=== PATIENT | female | born 1975 | race Caucasian/White ===

== ENCOUNTER 2016-08-13 11:17 | Emergency (ER) | payer MEDICAID ==
[~2016-08-13] VITALS: Wt 86.5 kg
[2016-08-13] MEDS ORDERED: NAPR-260 PO (12:06)
[2016-08-13] MEDS ORDERED: OMEP40CA6 PO (12:06)
--- NOTE | 2016-08-13 12:47 | ERD ---
ER Documentation Chief Complaint Date/Time DATE: 08/13/16 TIME: 12:34 Chief Complaint HEADACHE AND GENERAL BODY PAIN SINCE LAST NIGHT HPI 41-year-old female complaining of bilateral hand and arm pain and numbness 2 month. Symptoms become worse the last 2 weeks. The pain is constant, worse at night, warm water in the morning makes the pain better. Patient reports numbness tingling in her middle and ring fingers bilaterally. She has decrease in vehicle technician strength bilaterally. Patient is right-hand dominant, works in the kitchen. Denies trauma. Patient also complaining of epigastric pain on and off 1 month. Pain is worse after eating, cramp like. She feels acid coming up her throat at times. Denies nausea, vomiting, or diarrhea. Denies fever or chills. ROS All systems reviewed and are negative except as per history of present illness. Medications Home Meds Active Scripts Omeprazole* (Omeprazole*) 40 Mg Capsule.dr, 40 MG PO DAILY, #14 CAP Prov:SANDIE HEATH. NON PROFIT FINANCIAL CONTROLLER 08/13/16 Naproxen* (Naprosyn*) 500 Mg Tablet, 500 MG PO BID Y for PAIN AND/OR INFLAMMATION, #30 TAB Take with food Prov:SANDIE HEATH. NON PROFIT FINANCIAL CONTROLLER 08/13/16 PMhx/Soc Medical and Surgical Hx: pt denies Medical Hx History of Surgery: No Anesthesia Reaction: No Hx Neurological Disorder: No Hx Respiratory Disorders: No Hx Cardiac Disorders: No Hx Psychiatric Problems: No Hx Miscellaneous Medical Probl: No Hx Alcohol Use: No Hx Substance Use: No Hx Tobacco Use: No Smoking Status: Never smoker Physical Exam Vitals Vital Signs Date Time Temp Pulse Resp B/P Pulse Ox O2 Delivery O2 Flow Rate FiO2 08/13/16 11:23 98.0 71 18 139/80 99 Physical Exam General impression: Well-developed, well-nourished. Alert, oriented, in no acute distress Head: Normocephalic, atraumatic. Eyes: PERRL, EOM normal. Sclerae are normal. Conjunctiva not injected. Neck: Supple, nontender. No lymphadenopathy. No nuchal rigidity. No midline C-spine tenderness. Respiration: Normal respiratory effort. Lungs clear to auscultate bilaterally. No wheezes, rales or rhonchi. Cardiovascular: Regular rate and rhythm. No murmurs or extra heart sounds. Abdomen: Abdomen normal to inspection. Nontender. No masses or organomegaly. Bowel sounds normal. Back: Normal to inspection. No midline spine tenderness. No CVA tenderness. Extremities: Extremities normal to inspection. Positive Tinel and Phalen's signs bilaterally. Right hand vehicle technician strength slightly decreased compared to the left. Range of motion normal. Neurovascularly intact. Neuro: Mental status normal, speech normal. ADJUNCT HISTORY INSTRUCTOR grossly intact. Skin: Normal turgor. No rash or lesions. Psych: Normal mood and affect. Procedures/MDM Well-appearing 41-year-old female presented ED with bilateral hand pain and numbness. Patient's exam findings are consistent with carpal tunnel syndrome bilaterally, likely due to repetitive stress at work in the kitchen. I doubt fractures, dislocations, ligamentous injuries, or rheumatoid arthritis. I doubt radicular neuropathy. Bilateral wrists were immobilized with a Velcro wrist splints. Patient was noted to be comfortable and neurovascularly intact both before and after the immobilization. Patient advised to follow-up with PCP for and or the referral. Patient also reports epigastric pain on and off. Her history is consistent with acid reflux. She does not have any abdominal tenderness on palpation, I doubt acute appendicitis, cholecystitis, pericarditis, or other acute abdomen. Patient appears well, stable for discharge and outpatient management. Medical decision making shared with patient and family. Education provided to patient and family. Patient and family expressed understanding of the plan. Medications on discharge: Omeprazole, naproxen. Follow-up: Primary care provider in 2-3 days or return to ED if worse. Departure Diagnosis: Primary Impression: Carpal tunnel syndrome on both sides Additional Impression: Epigastric abdominal pain Condition: Good Patient Instructions: Carpal Tunnel Syndrome Prevention Tips, Carpal Tunnel, Gerd (Adult) Referrals: [facility] Usted se valentine hecho un examen mdico de control que le indica que no est en brynn condicin que requiera tratamiento urgente en el Departamento de Emergencia. Un estudio ms profundo y el tratamiento de miner condicin pueden esperar sin ningn riesgo hasta que usted sea atendida/o en el consultorio de miner mdico o brynn cl roberto. Es responsabilidad suya arreglar brynn hamilton para el seguimiento del mandeep. MANEJO DE CONDICIONES NO URGENTES EN EL FUTURO 1) Si usted tiene un mdico de atencin primaria: Usted debera llamar a miner mdico de atencin primaria antes de venir al departamento de emergencia. Despus de las horas de consultorio, miner doctor o miner asociado/a est disponible por telfono. El mdico o enfermero de abraham en el servicio telefnico puede asesorarle por orquidea medio para atender el problema, o mandeep contrario se puede programar brynn hamilton. 2) Si usted no tiene un mdico de atencin primaria: Llame al mdico o clnica de referencia que aparece abajo indu las horas de consultorio para hacer brynn hamilton para que le vean. CLINICAS: [place] [id number] [phone] [facility] [phone] [id number] [facility]. [facility] [phone] [facility]. [place] [phone] [facility]. [place] [id number] [phone] [facility]. [phone] [address] Additional Instructions: Llame al doctor MAANA y israel brynn HAMILTON PARA DENTRO DE 2-3 ROONEY.Dgale a la secretaria que nosotros le instruimos hacer esta hamilton.Avise o llame si miner condicin se empeora antes de la hamilton. Regresa aqui si peor o no mejor. Specialist:Usted tiene brynn condicin mdica que requiere que barb a un especialista dentro de los prximos 1-2 day.POR FAVOR,CON MINER SEGUIMIENTO DE PRIMARIA PHSICIAN refferal. SI USTED NO TIENE UN MDICO GENERAL Y / O USTED NO PUEDE PAGAR luli a un mdico,los siguientes monroy RECURSOS sido suministrado a usted. ES MINER RESPONSABILIDAD PARA SER VISTOS POR EL ESPECIALISTA: SANDIE HEATH. RIVAS Aug 13, 2016 12:44
== END 2016-08-13 12:28 | disposition home or self-care (01) ==
LOC: FTE 11:17
DX: G56.03 Carpal tunnel syndrome, bilateral upper limbs (principal); R10.13 Epigastric pain
CPT/HCPCS: 29125; Z7502

== ENCOUNTER 2016-08-24 19:53 | Emergency (ER) | payer MEDICAID ==
[~2016-08-24] VITALS: Ht 157.5 cm; Wt 88.0 kg
[~2016-08-24 19:53] MED LIST: NAPR-260 PO; OMEP40CA6 PO
[2016-08-24 20:02] VITALS: Ht 157.5 cm; Wt 88.0 kg
[2016-08-24] MEDS ORDERED: KETOROLAC 30 MG INJ IM STA (21:08)
[2016-08-24] MEDS ORDERED: IBUP-1542 PO (21:17)
[2016-08-24] MEDS ORDERED: ACET500C5 PO (21:17)
[2016-08-24] MEDS ORDERED: TRAM50TA2 PO (21:17)
--- NOTE | 2016-08-24 21:25 | ERD ---
ER Documentation Chief Complaint Date/Time DATE: 08/24/16 TIME: 21:20 Chief Complaint rightr arm and hand pain w/ swelling x 2 days HPI This is a 41-year-old female presents to the emergency department today complaining of right arm and hand pain and swelling for the past couple of days. Patient states he was seen here couple of weeks ago for the same symptoms and states that she has been taking Naprosyn but makes her sleepy and dizzy. States that she does have wrist braces but she only weighs him for 4 hours a day. States that she is waiting for possible referral from her primary care doctor [facility]. 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 Denies any fevers or chills, chest pain or shortness of breath. ROS All systems reviewed and are negative except as per history of present illness. Medications Home Meds Active Scripts Ibuprofen* (Motrin*) 600 Mg Tab, 600 MG PO Q6, #30 TAB Prov:MARIAJOSE DUMONT PA-C 08/24/16 Acetaminophen* (Tylophen*) 500 Mg Capsule, 1 CAP PO Q6H Y for PAIN AND OR ELEVATED TEMP, #30 CAP Prov:MARIAJOSE DUMONT PA-C 08/24/16 Tramadol HCl (Tramadol HCl) 50 Mg Tablet, 50 MG PO Q4 Y for PAIN, #20 TAB Prov:MARIAJOSE DUMONT PA-C 08/24/16 Omeprazole* (Omeprazole*) 40 Mg Capsule.dr, 40 MG PO DAILY, #14 CAP Prov:SANDIE HEATH. LEAD SOFTWARE ENGINEER 08/13/16 Naproxen* (Naprosyn*) 500 Mg Tablet, 500 MG PO BID Y for PAIN AND/OR INFLAMMATION, #30 TAB Take with food Prov:SANDIE HEATH. LEAD SOFTWARE ENGINEER 08/13/16 Allergies Allergies: Coded Allergies: No Known Allergy (Unverified , 08/24/16) PMhx/Soc History of Surgery: No Anesthesia Reaction: No Hx Neurological Disorder: No Hx Respiratory Disorders: No Hx Cardiac Disorders: No Hx Psychiatric Problems: No Hx Miscellaneous Medical Probl: No Hx Alcohol Use: No Hx Substance Use: No Hx Tobacco Use: No Smoking Status: Never smoker Physical Exam Vitals Vital Signs Date Time Temp Pulse Resp B/P Pulse Ox O2 Delivery O2 Flow Rate FiO2 08/24/16 20:02 97.3 77 20 133/80 100 Physical Exam Const: Obese, no acute distress Head: Atraumatic Eyes: Normal Conjunctiva ENT: Normal External Ears, Nose and Mouth. Neck: Full range of motion..~ No meningismus. Resp: Clear to auscultation bilaterally Cardio: Regular rate and rhythm, no murmurs Skin: No petechiae or rashes Ext: No cyanosis, or edema. Right arm with no erythema or warmth. Full active range of motion at shoulder elbow. Pain with wrist flexion. Good cap refill. Distal neurovascularly intact. Positive Phalen's sign. Pulses 2+. Neur: Awake and alert Psych: Normal Mood and Affect Results 24 hrs Current Medications Medications (Trade) Dose Ordered Sig/Alanna Route PRN Reason Start Time Stop Time Status Last Admin Dose Admin Ketorolac Tromethamine (Toradol) 30 mg ONCE STAT IM 08/24/16 21:08 08/24/16 21:09 DC Procedures/MDM This a 5-year-old female who presents the emergency department today complaining of right arm and hand pain tingling and swelling in her fingers for the past 6 weeks. Patient was seen here on August 13 and was diagnosed with carpal tunnel syndrome at that time. Patient had indicated that her left arm got better she was seen here for bilateral hand pain and numbness. She today states that she continues to have pain in the right arm. Patient has full active range of motion and there has been no new trauma. Low suspicion for acute fracture dislocation per she does have a positive Phalen's test. Her pulses are strong bilaterally and I do not feel the patient requires an ultrasound to rule out a DVT. Patient denies any chest pain or shortness of breath. Her oxygen saturation is 100%. She is afebrile and otherwise well- appearing. Low suspicion for PE. I do feel the patient's symptoms are likely related to carpal tunnel especially given her numbness and tingling. Patient did indicate that it was worse at night and I suspect that this is because of the way she sleeps. Patient was given wrist braces on her last visit and she has been instructed to sleep with them at night. I did give patient a short course of tramadol as she was indicating that the Naprosyn was making her dizzy. I also instructed her that we would not continue giving her pain medication here in the emergency department. Patient understood. Patient was given Toradol and discharged home with tramadol, Tylenol and Motrin. Patient instructed to follow-up with her primary care doctor for referral to physical therapy. At this time the patient is stable for discharge and outpatient management. Patient should follow up with their PCP in the next 1-2 days. They may return to the emergency department sooner for any persistent or worsening of symptoms. Patient understood and agreed with the plan. Departure Diagnosis: Primary Impression: Pain of right arm Condition: Fair Patient Instructions: What Is Carpal Tunnel Syndrome (CTS)? Referrals: your PCP [facility] Hours: Mon-Fri 9:00 AM - 5:00 PM Additional Instructions: Llame al doctor ZACK y israel brynn HAMILTON PARA DENTRO DE 1-2 ROONEY.Dgale a la secretaria que nosotros le instruimos hacer esta hamilton.Avise o llame si da silva condicin se empeora antes de la hamilton. Regresa aqui si peor o no mejor. Take tramadol for severe pain otherwise take Tylenol or Motrin Wear wrist braces to bed at night and as often as possible during the day Get a referral for physical therapy MARIAJOSE DUMONT PA-C August 24, 2016 21:25
[2016-08-24 21:28] VITALS: BP 102/67; PULSE 74; RESP 19; TEMP 98.6
== END 2016-08-24 21:28 | disposition home or self-care (01) ==
LOC: FTE 19:53
DX: M79.601 Pain in right arm (principal)
CPT/HCPCS: 96372; J1885